=== PATIENT | male | born 1945 ===

== ENCOUNTER → 2016-09-11 | Day surgery (SDC) | payer MEDICARE ==
[~2016-09-11] MED LIST: DEXAMETHASONE SOD PHOS 4 MG/ML VIAL ONE; EPINEPHrine HCL (1:1000) 1 MG/ML VIAL ONE; LACTATED RINGER'S 1000 ML INJ 1,000 ML ONE; MIDAZOLAM HCL 2 MG/2 ML VIAL ONE; MOXIFLOXACIN 0.5% OPHT SOLN 3 ML BTL ONE; ONDANSETRON HCL 4 MG/2 ML VIAL IV PUSH ONE; PHENYLEPHRINE HCL 10% OPTH SOLN 5 ML BTL ONE; PROPOFOL 200 MG/20 ML AMP IV ONE; SODIUM CHLORIDE 0.9% INJ 10 ML ONE; TETRACAINE 0.5% OPTH SOLN 4 ML BTL ONE; TOBRAMYCIN/DEXAMETHASONE OPTH OINT 3.5 GM TUBE ONE; TRIAMCINOLONE ACETONIDE 40 MG/ML VIAL ONE; ceFAZolin INJ 1,000 MG VIAL ONE; prednisoLONE ACETATE 1% OPHT SUSP 5 ML BTL ONE
--- NOTE | 2016-09-15 17:13 | MP ---
cc: AMADOU MENDEZ MD DATE OF SURGERY: 09/15/2016. PREOPERATIVE DIAGNOSIS: Epiretinal membrane, retinal edema, metamorphopsia, right eye. POSTOPERATIVE DIAGNOSIS: Epiretinal membrane, retinal edema, metamorphopsia, right eye, OPERATIVE PROCEDURE PERFORMED: Pars plana vitrectomy, removal of internal limiting membrane / epiretinal membrane, intravitreal Kenalog, right eye. SURGEON: Amadou Mendez MD. COMPLICATIONS: None. ESTIMATED BLOOD LOSS: Less than 1 cc. ANESTHESIA: General, Dr. Horton. INDICATIONS FOR THE PROCEDURE: This patient presented with a worsening epiretinal membrane of his right eye. The patient had difficuly with daily tasks with severe metamorphopsia and elected for surgical repair to decrease his worsening of his vision. DESCRIPTION OF THE PROCEDURE IN DETAIL: After informed consent was obtained, the patient was brought to the operating room and general anesthesia was established. The right eye was prepped and draped in the sterile fashion with Betadine in the conjunctival fornix. A deep port pars plana vitrectomy was established with a self-retaining infusion cannula. Core vitreous was evacuated and posterior vitreous detachment created. The EIM / ILM complex was highlighted with ICG and removed with Lamonte ILM forceps. The retina had improved contour and mobility. Scleral depression examination revealed no untreated retinal holes, tears or detachments. Intravitreal Kenalog was instilled. Trocars were removed and sclerotomies closed. Subconjunctival injections of Ancef and dexamethasone were given. The eye was patched with Tobramycin ointment. The patient was brought to the recovery in stable condition and will continue follow up [facility] for his postoperative care. MD OLGA Colon/LIANE /10:45 PM /5:04 PM KIESHA
== END | disposition home or self-care (01) ==
LOC: ESDC 06:34
PROVIDERS: ATTEND Ophthalmology
DX: H35.371 Puckering of macula, right eye (principal); H35.81 Retinal edema; H53.15 Visual distortions of shape and size
CPT/HCPCS: 00145; 67042; J0171; J0690; J1100; J2250; J2405; J3010; J3301; J7120